=== PATIENT | male | born 1960 | race Caucasian/White ===

== ENCOUNTER → 2018-06-17 09:13 | Outpatient (CLI) | payer OTHER, SELFPAY ==
[2018-06-17 09:40] LABS: Add Manual Diff / Slide Review NO; Eosinophils Percent Auto 0.2 % (2-4); Hematocrit 45.9 % (41-53); Hemoglobin 15.8 g/dL (13.5-17.5); Lymphocytes Percent Auto 20.3 % (25-40); Mean Corpuscular HGB Conc 34.5 % (30-36); Mean Corpuscular Volume 98.4 fL (80-100); Monocytes Percent Auto 6.9 % (3-14); Neutrophils Absolute Auto 6400 /uL (1500-7000); Neutrophils Percent Auto 71.6 % (50-75); Platelet Count 175 X10^3/uL (150-400); Red Blood Cell Count 4.66 X10^6/uL (4.5-5.9); Red Cell Distribution Width 14.2 % (11.6-14.8)
[2018-06-17 09:50] LABS: Alanine Aminotransferase 32 IU/L (21-72); Albumin 4.9 g/dL (3.5-5.0); Albumin Globulin Ratio 1.6 (1.0-2.8); Alkaline Phosphatase 61 U/L (38-126); Aspartate Aminotransferase 40 IU/L (17-59); Bilirubin Total 0.8 mg/dL (0.2-1.3); Blood Urea Nitrogen 12 mg/dL (9-20); Calcium 10.5 mg/dL (8.4-10.2); Carbon Dioxide 27 mmol/L (22-32); Chloride 99 mmol/L (98-107); Estimated Glomerular Filt Rate > 60.0 mL/min (>60); Globulin 3.1 g/dL (1.7-4.1); Glucose 91 mg/dL (80-110); HEMOLYSIS < 15 (0-50); Potassium 4.3 mmol/L (3.4-5.1); Sodium 137 mmol/L (137-145)
[2018-06-17 10:27] LABS: HEMOLYSIS < 15 (0-50); Iron 152 ug/dL (49-181)
[2018-06-17 10:31] LABS: C-Reactive Protein Quant < 0.5 mg/dL (<1.0)
[2018-06-17 10:32] LABS: Erythrocyte Sedimentation Rate 1 MM/HR (0-15)
[2018-06-17 10:37] LABS: Percent Iron Saturation 48 % (20-50); Total Iron Binding Capacity 316 ug/dL (261-462); Transferrin 282 mg/dL (206-381)
[2018-06-17 10:58] LABS: TSH w/ Reflex to FT4 1.01 uIU/mL (0.47-4.68)
[2018-06-17 14:27] LABS: Clostridium Difficile Tox PCR Positive for C. diff
[2018-06-22 12:59] LABS: Calprotectin, Stool < 15.6 mcg/g
== END ==
PROVIDERS: Visit Provider Physician Assistant
DX: R19.7 Diarrhea, unspecified (principal)
CPT/HCPCS: 36415; 80053; 83540; 83550; 83993; 84443; 85025; 85651; 86140; 87015; 87045; 87177; 87427; 87493; 87899

== ENCOUNTER → 2018-09-09 15:08 | Outpatient (CLI) | payer OTHER, SELFPAY ==
[2018-09-09 16:07] LABS: Cholesterol 147 mg/dL (140-199); HDL Cholesterol 60 mg/dL (40-60); LDL Cholesterol Calculated 71 mg/dL (<100); Triglycerides 81 mg/dL (35-150)
[2018-09-09 16:38] LABS: Prostate Specific Antigen Scrn 0.945 ng/mL (0.1-4.0)
[2018-09-09 18:10] LABS: Vitamin D 25 Hydroxy (D3) < 12.8 ng/mL (30.0-100.0)
== END ==
PROVIDERS: Visit Provider Student in an Organized Health Care Education/Training Program
DX: Z13.220 Encounter for screening for lipoid disorders (principal); E55.9 Vitamin D deficiency, unspecified; Z12.5 Encounter for screening for malignant neoplasm of prostate
CPT/HCPCS: 36415; 80061; 82306; G0103

== ENCOUNTER → 2018-09-29 13:45 | Outpatient (CLI) | payer OTHER, SELFPAY ==
[2018-09-29 16:18] LABS: Vitamin D 25 Hydroxy (D3) < 12.8 ng/mL (30.0-100.0)
== END ==
PROVIDERS: PCP Student in an Organized Health Care Education/Training Program; Visit Provider Student in an Organized Health Care Education/Training Program
DX: E55.9 Vitamin D deficiency, unspecified (principal)
CPT/HCPCS: 36415; 82306

== ENCOUNTER → 2019-10-31 16:14 | Outpatient (CLI) | payer OTHER, SELFPAY ==
--- NOTE | 2019-10-31 16:18 | DI.RAD.S_ITS ---
PROCEDURE: XR CHEST 2V INDICATIONS: Right sided chest pain TECHNIQUE: 2 views of the chest were acquired. COMPARISON: [facility], , CHEST 2 VIEW, 05/10/2014, 13:56. FINDINGS: Surgical changes and devices: None. Lungs and pleura: Lungs are clear. No pleural effusions or pneumothorax. Mediastinum: Mediastinal contours are normal. Heart size is normal. Bones and chest wall: No suspicious bony abnormalities. Soft tissues appear unremarkable. IMPRESSION: Normal for age, source of current right-sided chest pain symptoms is not seen. Dictated by: Nir Jane M.D. on 10/31/2019 at 16:43 Approved by: Nir Jane M.D. on 10/31/2019 at 16:43
== END ==
LOC: RAD 16:17
PROVIDERS: PCP Student in an Organized Health Care Education/Training Program; Referring Provider Family Medicine; Visit Provider Family Medicine
DX: R07.9 Chest pain, unspecified (principal)
CPT/HCPCS: 71046

== ENCOUNTER → 2023-07-08 15:20 | Outpatient (CLI) | payer OTHER, SELFPAY ==
--- NOTE | 2023-07-08 15:21 | DI.RAD.S_ITS ---
PROCEDURE: XR CHEST 2V INDICATIONS: Cough TECHNIQUE: 2 views of the chest were acquired. COMPARISON: [facility], , XR CHEST 2V, 10/31/2019, 16:20. [facility], , CHEST 2 VIEW, 05/10/2014, 13:56. FINDINGS: Surgical changes and devices: None. Lungs and pleura: Streaky left basilar airspace opacity. Peribronchial cuffing. Mediastinum: Mediastinal contours are normal. Heart size is normal. Bones and chest wall: No suspicious bony abnormalities. Soft tissues appear unremarkable. IMPRESSION: Peribronchial cuffing, typically indicating infectious or inflammatory bronchitis. Streaky left basilar airspace opacity, probably atelectasis. Dictated by: Wicho Menjivar M.D. on 07/08/2023 at 15:40 Approved by: Wicho Menjivar M.D. on 07/08/2023 at 15:42
== END ==
PROVIDERS: PCP Student in an Organized Health Care Education/Training Program; Referring Provider Nurse Practitioner Family; Visit Provider Nurse Practitioner Family
DX: R05.9 Cough, unspecified (principal)
CPT/HCPCS: 71046

== ENCOUNTER → 2023-10-26 13:21 | Outpatient (CLI) | payer OTHER, SELFPAY ==
[2023-10-26 14:39] LABS: Add Manual Diff / Slide Review NO; Basophils Absolute Auto 100 /uL (0-100); Basophils Percent Auto 0.8 % (0-2); Eosinophils Absolute Auto 100 /uL (0-450); Eosinophils Percent Auto 1.4 % (2-4); Hematocrit 42.7 % (41-53); Hemoglobin 14.6 g/dL (13.5-17.5); Lymphocytes Absolute Auto 2800 /uL (1100-4500); Lymphocytes Percent Auto 28.1 % (25-40); Mean Corpuscular HGB Conc 34.1 % (30-36); Mean Corpuscular Volume 88.1 fL (80-100); Monocytes Absolute Auto 600 /uL (0-900); Monocytes Percent Auto 5.9 % (3-14); Neutrophils Absolute Auto 6300 /uL (1500-7000); Neutrophils Percent Auto 63.8 % (50-75); Platelet Count 199 X10^3/uL (150-400); Red Blood Cell Count 4.85 X10^6/uL (4.5-5.9); Red Cell Distribution Width 14.5 % (11.6-14.8); White Blood Cell Count 9.9 X10^3/uL (4.5-11.0)
[2023-10-26 15:02] LABS: Alanine Aminotransferase 25 IU/L (<50); Albumin 4.2 g/dL (3.5-5.0); Albumin Globulin Ratio 1.9 (1.0-2.8); Alkaline Phosphatase 79 U/L (38-126); Aspartate Aminotransferase 29 IU/L (17-59); BUN Creatinine Ratio 15.6 (6-22); Bilirubin Total 0.5 mg/dL (0.2-1.3); Blood Urea Nitrogen 12 mg/dL (9-20); Calcium 10.1 mg/dL (8.4-10.2); Carbon Dioxide 29 mmol/L (22-32); Chloride 104 mmol/L (98-107); Cholesterol 145 mg/dL (140-199); Estimated Glomerular Filt Rate > 60 mL/min (>60); Globulin 2.2 g/dL (1.7-4.1); Glucose 80 mg/dL (80-110); HDL Cholesterol 39 mg/dL (40-60); HEMOLYSIS < 15 (0-50); LDL Cholesterol Calculated 82 mg/dL (<100); Potassium 4.4 mmol/L (3.4-5.1); Sodium 137 mmol/L (137-145); Total Protein 6.4 g/dL (6.3-8.2); Triglycerides 120 mg/dL (35-150)
[2023-10-26 15:27] LABS: Prostate Specific Antigen Scrn 1.11 ng/mL (0.1-4.0)
[2023-10-26 16:39] LABS: HIV 1 & 2 Ab/Ag 4th Gen Combo NEGATIVE (NEGATIVE); Hep C Virus Ab w/Reflex Quant NEGATIVE s/c (NEGATIVE)
== END ==
PROVIDERS: PCP Family Medicine; Referring Provider Family Medicine; Visit Provider Family Medicine
DX: Z13.220 Encounter for screening for lipoid disorders (principal); Z13.9 Encounter for screening, unspecified; Z11.59 Encounter for screening for other viral diseases; Z11.4 Encounter for screening for human immunodeficiency virus [HIV]; Z12.5 Encounter for screening for malignant neoplasm of prostate; G56.20 Lesion of ulnar nerve, unspecified upper limb
CPT/HCPCS: 36415; 80053; 80061; 85025; 86803; 87389; G0103

== ENCOUNTER → 2023-11-11 14:46 | Outpatient (CLI) | payer OTHER, SELFPAY ==
--- NOTE | 2023-11-11 15:00 | DI.US.S_ITS ---
PROCEDURE: US ABDOMEN LIMITED INDICATIONS: Possible ventral hernia TECHNIQUE: Real-time focused scanning was performed of the abdomen, with image documentation. COMPARISON: None. FINDINGS: Non reducible fat containing hernia within the area of interest with defect measuring 8 mm. The herniated fat measures 2.5 x 1.0 x 2.0 cm. No change in size of the solid. IMPRESSION: Non reducible fat containing hernia as above. Dictated by: Kenney Estevez M.D. on 11/11/2023 at 17:22 Approved by: Kenney Estevez M.D. on 11/11/2023 at 17:23
== END ==
PROVIDERS: PCP Family Medicine; Referring Provider Family Medicine; Visit Provider Family Medicine
DX: K46.0 Unspecified abdominal hernia with obstruction, without gangrene (principal); R10.13 Epigastric pain
CPT/HCPCS: 76705

== ENCOUNTER → 2024-11-17 11:22 | Outpatient (CLI) | payer OTHER, SELFPAY ==
--- NOTE | 2024-11-17 11:26 | DI.RAD.S_ITS ---
PROCEDURE: XR ANKLE RT MIN 3V INDICATIONS: Right ankle pain, twisted TECHNIQUE: 3 views of the ankle were acquired. COMPARISON: [facility], CR, XR ANKLE 3VW RT, 11/27/2015, 13:12. FINDINGS: Bones: No definite acute fracture is seen on this plain film study. Focal irregularity can be seen involving the distal medial malleolus, which has the appearance of a remote fracture. There is mild lucency seen involving the lateral talar dome. Generalized degenerative changes are seen, including a moderate plantar calcaneal spur. Soft tissues: Soft tissue swelling is seen, particularly medially. IMPRESSION: Soft tissue swelling is seen, without an acute bony abnormality seen by plain film. If there is point tenderness (or other clinical suspicion for a fracture not seen on these images) then a dedicated CT or a short-term followup plain film series could be considered for further evaluation, as clinically appropriate. There is mild lucency seen involving the lateral talar dome. Please consider an osteochondral defect. - If it would be helpful for clinical management decision making, please consider a dedicated, scheduled ankle MRI for further evaluation (assuming that there is no contraindication). Dictated by: Venkatesh Chau M.D. on 11/17/2024 at 10:44 Approved by: Venkatesh Chau M.D. on 11/17/2024 at 10:48
== END ==
PROVIDERS: PCP Family Medicine; Referring Provider Nurse Practitioner Family; Visit Provider Nurse Practitioner Family
DX: S96.911A Strain of unspecified muscle and tendon at ankle and foot level, right foot, initial encounter (principal); M79.89 Other specified soft tissue disorders; X58.XXXA Exposure to other specified factors, initial encounter
CPT/HCPCS: 73610